=== PATIENT | female | born 1945 | race Two or more races ===

== ENCOUNTER 2017-02-17 23:08 | Emergency (ER) | payer MEDICARE ==
[~2017-02-17] VITALS: Ht 165.1 cm; Wt 99.8 kg
--- NOTE | 2017-02-17 23:21 | NUR ---
PT PRESENTED TO THE ER WITH A C/O INTERMITTENT RT HAND NUMBNESS. PT AMBULATED TO ER #5 WITH A STEADY GAIT.
[2017-02-17 23:43] VITALS: BP 141/82
--- NOTE | 2017-02-17 23:43 | NUR ---
Patient discharged to home in stable condition. Written and verbal after care instructions given. Patient verbalizes understanding of instruction. PT AMBULATED OUT WITH A STEADY GAIT. VSS.
== END 2017-02-17 23:44 | disposition home or self-care (01) ==
LOC: ER 23:12
DX: M54.12 Radiculopathy, cervical region (principal); E78.00 Pure hypercholesterolemia, unspecified; I11.0 Hypertensive heart disease with heart failure; I50.9 Heart failure, unspecified; E11.9 Type 2 diabetes mellitus without complications
CPT/HCPCS: 99281; A4606; Z7502; Z7610

== ENCOUNTER 2017-08-08 17:02 | Emergency (ER) | payer MEDICARE ==
[~2017-08-08] VITALS: Ht 165.1 cm; Wt 99.8 kg
--- NOTE | 2017-08-08 17:32 | NUR ---
pt ambulatory to er bed 12. c/o nausea and vomiting, fever cough and congestion since tuesday. states been taking tylenol w/ no relief. 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 nad noted. awaiting md [place].
--- NOTE | 2017-08-08 18:04 | NUR ---
reed inpatient nursing aide at bedside for eval.
--- NOTE | 2017-08-08 18:20 | NUR ---
iv line started. blood drwan and sent to lab.
[2017-08-08 18:26] LABS: BASOPHILS % (AUTO) 0.5 % (0.0-2.0); EOSINOPHILS % (AUTO) 0.1 % (0.0-6.0); HEMATOCRIT 39 % (33-45); HEMOGLOBIN 13.3 g/dL (11.5-14.8); LYMPHOCYTES # (AUTO) 0.5 /CMM (0.8-4.8); LYMPHOCYTES % (AUTO) 6.5 % (20.0-44.0); MEAN CORPUSCULAR HEMOGLOBIN 30 PG (26.0-33.0); MEAN CORPUSCULAR HGB CONC 34 g/dl (31.0-36.0); MEAN CORPUSCULAR VOLUME 87 fL (82-100); MONOCYTES # (AUTO) 0.8 /CMM (0.1-1.30); MONOCYTES % (AUTO) 11.2 % (2.0-12.0); NEUTROPHILS # (AUTO) 6.1 /CMM (1.8-8.9); NEUTROPHILS % (AUTO) 81.7 % (43.0-81.0); PLATELET COUNT (AUTO) 201 /CMM (150-450); RDW COEFFICIENT OF VARIATION 13.3 (11.5-15.0); RED BLOOD CELL COUNT(AUTO) 4.49 MIL/uL (4.0-5.2); WHITE BLOOD COUNT (AUTO) 7.4 K/uL (4.3-11.0)
[2017-08-08] MEDS ORDERED: IV NS 0.9% 500 ML BAG IV ONE (18:30)
[2017-08-08] MEDS ORDERED: IBUPROFEN 600 MG TABLET PO ONE ×2 (18:30→18:50)
[2017-08-08 18:37] LABS: CALCIUM, SERUM 9.1 mg/dL (8.5-10.1); CARBON DIOXIDE 26 mmol/L (21-32); CHLORIDE 105 mmol/L (98-107); CREATININE 1.5 mg/dL (0.6-1.3); GLUCOSE 219 mg/dL (74-106); POTASSIUM 4.6 mmol/L (3.5-5.1); SODIUM SERUM 137 mmol/L (136-145); UREA NITROGEN, BLOOD 28 mg/dL (7-18)
[2017-08-08 18:40] LABS: INR 0.93 (0.87-1.13); PROTHROMBIN TIME 9.7 SECS (9.5-12.7)
[2017-08-08 18:43] LABS: ALANINE AMINOTRANSFERASE 20 U/L (12-78); ALBUMIN 3.7 g/dL (3.4-5.0); ALKALINE PHOSPHATASE 71 U/L (46-116); ASPARTATE AMINOTRANSFERASE 26 U/L (15-37); BILIRUBIN,TOTAL 0.2 mg/dL (0.2-1.0); TOTAL PROTEIN, SERUM 7.4 g/dL (6.4-8.2)
[2017-08-08 18:44] LABS: TROPONIN I 0.025 ng/mL (0.00-0.056)
[2017-08-08] MEDS ORDERED: IPRATROPIUM NEB FS 0.5 MG/2.5 ML AMPUL.NEB NEB ONE (19:00)
[2017-08-08] MEDS ORDERED: ALBUTEROL FS 2.5 MG/3 ML VIAL.NEB NEB ONE (19:00)
--- NOTE | 2017-08-08 19:25 | NUR ---
pt still unable to provide urine sample at this time. states will try later.
[2017-08-08] MEDS ORDERED: ALBUTEROL FS 2.5 MG/3 ML VIAL.NEB ONE (20:12)
[2017-08-08] MEDS ORDERED: IPRATROPIUM NEB FS 0.5 MG/2.5 ML AMPUL.NEB ONE (20:12)
--- NOTE | 2017-08-08 20:20 | NUR ---
rt at bedside for breathing treatment.
--- NOTE | 2017-08-08 21:17 | NUR ---
Patient discharged to home in stable condition. Written and verbal after care instructions given. Patient verbalizes understanding of instruction.IV removed. Catheter intact and site benign. Pressure and 4x4 applied to site. No bleeding noted.
[2017-08-08 21:18] VITALS: BP 132/64
== END 2017-08-08 21:19 | disposition home or self-care (01) ==
LOC: ER 17:14
DX: J10.1 Influenza due to other identified influenza virus with other respiratory manifestations (principal); E11.9 Type 2 diabetes mellitus without complications; E78.00 Pure hypercholesterolemia, unspecified; I11.0 Hypertensive heart disease with heart failure; I50.9 Heart failure, unspecified; Z99.81 Dependence on supplemental oxygen
CPT/HCPCS: 36415; 71045; 80048; 80076; 83605; 84484; 85025; 85730; 87040 ×2; 87804; 93005; 99285; A4606; J7040; 87400; Z7610